=== PATIENT | female | born 1995 | race Caucasian/White ===

== ENCOUNTER 2016-11-23 19:08 | Emergency (ER) | payer OTHER ==
--- NOTE | 2016-11-23 20:05 | ER Document Report ---
ED Medical Screen (RME) - General Stated Complaint: ARM BURN Mode of Arrival: Ambulatory Information source: Patient Notes: c/o of bilateral forearm and left thumb burn that occurred today around 1327 when she fell on the grill at work ([employer]). She has tried burn spray from the [facility] which did not help. It made the pain worse. She has not taken any other medication for this. I have greeted and performed a rapid initial assessment of this patient. A comprehensive ED assessment and evaluation of the patient, analysis of test results and completion of the medical decision making process will be conducted by additional ED providers. Physical Exam - Vital signs Vitals: Temp Pulse Resp BP Pulse Ox 98.6 F 83 16 130/88 H 99 11/23/16 19:34 11/23/16 19:34 11/23/16 19:34 11/23/16 19:34 11/23/16 19:34 - Notes Notes: Skin: area of erythema to bilateral forearms and left thumb, two small blisters noted to right wrist. Course - Vital Signs Vital signs: Temp Pulse Resp BP Pulse Ox 98.6 F 83 16 130/88 H 99 11/23/16 19:34 11/23/16 19:34 11/23/16 19:34 11/23/16 19:34 11/23/16 19:34
[2016-11-23] MEDS ORDERED: IBUPROFEN 600 MG TABLET PO ONE (20:06)
[2016-11-23] MEDS ORDERED: LIDOCAINE 2% JELLY 30 ML TUBE TOP ONE (20:57)
--- NOTE | 2016-11-23 20:58 | ER Document Report ---
ED Burn/Smoke/Toxic Fumes - General Mode of Arrival: Ambulatory Information source: Patient TRAVEL OUTSIDE OF THE [place] IN LAST 30 DAYS: No - HPI Patient complains to provider of: Burn Onset: This evening Where: Work Context: Other - see above Associated Symptoms: Other - see above - General Chief Complaint: Burn Stated Complaint: ARM BURN Notes: 21 year old female with no prior medical problems presents to the ED complaining of sutherland to the bilateral forearms and left first digit that occurred earlier this evening. 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 The step stool fell out from under her and she landed on the grill with her bilateral forearms. Patient states that she has iced them. Patient went to the pharmacist to get some burn ointment , but was advised to come to the ED for it. (KAILEY CHAMPION) - Related Data Allergies/Adverse Reactions: No Known Allergies Allergy (Unverified 11/23/16 20:06) Past Medical History - General Information source: Patient - Social History Smoking Status: Current Every Day Smoker Chew tobacco use (# tins/day): No Frequency of alcohol use: Occasional Drug Abuse: None Family History: Reviewed & Not Pertinent Patient has suicidal ideation: No Patient has homicidal ideation: No - Medical History Medical History: Negative Pulmonary Medical History: Reports: Hx Asthma Renal/ Medical History: Denies: Hx Peritoneal Dialysis Surgical Hx: Negative - Immunizations Hx Diphtheria, Pertussis, Tetanus Vaccination: Yes Review of Systems - Review of Systems Constitutional: No symptoms reported EENT: No symptoms reported Cardiovascular: No symptoms reported Respiratory: No symptoms reported Gastrointestinal: No symptoms reported Genitourinary: No symptoms reported Female Genitourinary: No symptoms reported Musculoskeletal: No symptoms reported Skin: See HPI, Other - sutherland to the bilateral forearms and left first digit Hematologic/Lymphatic: No symptoms reported Neurological/Psychological: No symptoms reported -: Yes All other systems reviewed and negative Physical Exam - General General appearance: Alert In distress: None - HEENT Head: Normocephalic, Atraumatic Eyes: Normal Extraocular movements intact: Yes Pupils: PERRL - Respiratory Respiratory status: No respiratory distress Breath sounds: Normal - Cardiovascular Rhythm: Regular Heart sounds: Normal auscultation - Abdominal Inspection: Normal - Back Back: Normal - Extremities General upper extremity: Normal ROM. No: Normal inspection - see skin exam below General lower extremity: Normal inspection, Normal ROM - Neurological Neuro grossly intact: Yes Cognition: Normal Orientation: AAOx4 Nadeau Coma Scale Eye Opening: Spontaneous Shalini Coma Scale Verbal: Oriented Shaliin Coma Scale Motor: Obeys Commands Shalini Coma Scale Total: 15 Speech: Normal - Psychological Associated symptoms: Normal affect, Normal mood - Skin Skin Temperature: Warm Skin Moisture: Dry Skin Color: Normal - see skin exam below Skin irregularity: other - 1st degree burn to the bilateral forearms. Right forearm burn is greater than left. 2nd degree burn to the left thumb that is 1cm in diameter. Location of irregularity: Extremities - bilateral forearms and left thumb Course - Re-evaluation Re-evalutation: 11/23/16 22:15 Patient is a 21-year-old female who comes in with bilateral first-degree sutherland to the volar aspect of her forearms. Patient has one small area of second- degree burn. Patient is requesting burning pain. Will be given lidocaine jelly. Patient will have her tetanus updated. Will be discharged home with Keflex. Return if any worsening or concerning symptoms. Stable for discharge. Understands and agrees with plan. (JR PORTILLO) - Vital Signs Vital signs: Temp Pulse Resp BP Pulse Ox 98.0 F 73 16 142/94 H 100 11/23/16 21:28 11/23/16 21:28 11/23/16 21:28 11/23/16 21:19 11/23/16 21:28 Discharge - Discharge Clinical Impression: First degree burn Second degree burn of hand Qualifiers: Encounter type: initial encounter Laterality: left Qualified Code(s): T23.202A - Burn of second degree of left hand, unspecified site, initial encounter Condition: Stable Disposition: HOME, SELF-CARE Instructions: Sutherland ([facility]), Tetanus Immunization Given ([facility]) Prescriptions: Cephalexin Monohydrate [Keflex 500 mg Capsule] 500 mg PO TID #20 capsule Lidocaine 15 gm TP BIDP PRN #1 cream..g. PRN Reason: Forms: Return to Work Scribe Attestation: 11/23/16 22:17 I personally performed the services described in the documentation, reviewed and edited the documentation which was dictated to the scribe in my presence, and it accurately records my words and actions. (JR PORTILLO) Scribe Documentation - Scribe Written by Scribe:: Rafa Solares, [id number] acting as scribe for :: Behzad
[2016-11-23] MEDS ORDERED: DIPH/PERTUSS(ACELL)/TETANUS VAC/PF 0.5 ML SYR (>=10YO) IM ONE (21:11)
[2016-11-23 21:38] VITALS: BP 142/94
== END 2016-11-23 21:39 | disposition home or self-care (01) ==
LOC: ER 19:08
DX: T23.212A Burn of second degree of left thumb (nail), initial encounter (principal); T22.112A Burn of first degree of left forearm, initial encounter; T22.111A Burn of first degree of right forearm, initial encounter; X19.XXXA Contact with other heat and hot substances, initial encounter; Y93.G1 Activity, food preparation and clean up; Y99.0 Civilian activity done for income or pay; F17.200 Nicotine dependence, unspecified, uncomplicated; J45.909 Unspecified asthma, uncomplicated; Z23 Encounter for immunization
CPT/HCPCS: 90471; 90715; 99283